=== PATIENT | female | born 1990 | race Caucasian/White ===

== ENCOUNTER 2023-07-29 12:25 | Emergency (ER) | payer MEDICAID ==
[~2023-07-29] VITALS: Ht 152.4 cm; Wt 81.6 kg
[2023-07-29 12:41] VITALS: BP 152/107; PULSE 97; RESP 18; TEMP 97; O2SAT 97
[2023-07-29] MEDS: ONDANSETRON 4 MG ODT PO ONE (13:02)
[2023-07-29] MEDS: KETOROLAC 60 MG/2 ML VIAL IM ONE (13:03)
[2023-07-29] MEDS ORDERED: CIPR500T4 PO (13:24)
[2023-07-29] MEDS ORDERED: IBUP-2213 PO (13:24)
[2023-07-29] MEDS ORDERED: ONDA8TAB87 PO (13:24)
[2023-07-29 13:32] VITALS: BP 130/88; PULSE 16; RESP 16; TEMP 98; O2SAT 98
== END 2023-07-29 13:32 | disposition home or self-care (01) ==
LOC: MED 12:25
DX: N39.0 Urinary tract infection, site not specified (principal); R11.2 Nausea with vomiting, unspecified; R19.7 Diarrhea, unspecified
CPT/HCPCS: 81002; 81025; 96372; 99283; J1885; Q0162